=== PATIENT | female | born 1970 | race Caucasian/White ===

== ENCOUNTER → 2016-06-27 | Outpatient (CLI) | payer BC ==
[2016-06-27 12:45] LABS: HEMOGLOBIN 13.8 gm/dl (12.3-15.3); RED BLOOD COUNT 4.38 M/UL (4.00-5.10); WHITE BLOOD COUNT 7.4 K/UL (4.5-11.0)
[2016-06-27 13:30] LABS: BUN/CREATININE RATIO 17 (0-10)
== END ==
LOC: LAB 12:06
PROVIDERS: Nurse Practitioner
DX: E87.6 Hypokalemia (principal); I10 Essential (primary) hypertension; R53.83 Other fatigue
CPT/HCPCS: 36415; 80053; 80061; 84436; 84443; 84480; 85025

== ENCOUNTER → 2020-04-06 | Outpatient (CLI) | payer BC ==
[~2020-04-06] MED LIST: ALDACTONE25 MG PO; AZELASTINE137 MCG/0.; COZAAR25 MG PO; FLONASE 0.05% N16 GM; IPRATROPIUM BRO15 ML; KEFLEX CAP 500500 MG PO; NORCO 5-325 TA1 EACH PO; SINGULAIR10 MG PO; ZYRTEC10 MG PO
== END ==
LOC: LAB 12:34
DX: E78.5 Hyperlipidemia, unspecified (principal)
CPT/HCPCS: 36415; 80061; 84450; 84460

== ENCOUNTER → 2020-07-24 | Outpatient (CLI) | payer BC ==
[2020-07-24 12:58] LABS: HEMOGLOBIN 14.3 gm/dl (12.3-15.3); RED BLOOD COUNT 4.4 M/UL (4.00-5.10); WHITE BLOOD COUNT 7.3 K/UL (4.5-11.0)
[2020-07-24 13:25] LABS: BUN/CREATININE RATIO 12 (0-10)
[2020-07-25 08:13] LABS: THYROXINE (T4) 5.5 ug/dL (4.5-12.0); VITAMIN D, 25-HYDROXY 41.2 ng/mL (30.0-100.0)
== END ==
LOC: LAB 11:47
PROVIDERS: Nurse Practitioner
DX: I10 Essential (primary) hypertension (principal); E55.9 Vitamin D deficiency, unspecified; E78.5 Hyperlipidemia, unspecified; R53.83 Other fatigue
CPT/HCPCS: 36415; 80053; 80061; 84436; 84443; 84480; 85025

== ENCOUNTER → 2020-08-21 | Outpatient (CLI) | payer BC ==
[2020-08-21 12:37] LABS: BUN/CREATININE RATIO 11 (0-10)
== END ==
LOC: LAB 11:40
PROVIDERS: Nurse Practitioner
DX: E87.6 Hypokalemia (principal); R22.32 Localized swelling, mass and lump, left upper limb
CPT/HCPCS: 36415; 73130; 80053

== ENCOUNTER → 2020-12-21 | Outpatient (CLI) | payer BC ==
[2020-12-21 10:33] LABS: HEMOGLOBIN 14.6 gm/dl (12.3-15.3); RED BLOOD COUNT 4.46 M/UL (4.00-5.10); WHITE BLOOD COUNT 7.2 K/UL (4.5-11.0)
[2020-12-21 10:56] LABS: BUN/CREATININE RATIO 14 (0-10)
[2020-12-22 05:08] LABS: THYROXINE (T4) 5.3 ug/dL (4.5-12.0); VITAMIN D, 25-HYDROXY 32.6 ng/mL (30.0-100.0)
== END ==
LOC: LAB 10:01
PROVIDERS: Nurse Practitioner
DX: I10 Essential (primary) hypertension (principal); E78.5 Hyperlipidemia, unspecified; R53.83 Other fatigue; E55.9 Vitamin D deficiency, unspecified; J30.2 Other seasonal allergic rhinitis
CPT/HCPCS: 36415; 80053; 80061; 81001; 84436; 84443; 84480; 85025